=== PATIENT | female | born 1950 | race Caucasian/White ===

== ENCOUNTER 2018-06-23 10:36 | Outpatient (CLI) | payer MEDICARE, BC ==
--- NOTE | 2018-06-23 12:28 | BD ---
BONE DENSITOMETRY USING DEXA: Date: 06/23/18 HISTORY: Postmenopausal screening for osteoporosis. FINDINGS: Lumbar Spine: BMD (g/cm2) L1 0.774 T-Score: -2.0 Z-Score: -0.4 L2 0.835 T-Score: -1.8 Z-Score: 0.0 L3 0.866 T-Score: -2.0 Z-Score: -0.1 L4 0.918 T-Score: -1.3 Z-Score: 0.6 L1-L4 0.849 T-Score: -1.8 Z-Score: 0.0 Femoral Neck: 0.569 T-Score: -2.5 Z-Score: -1.0 Total Femur: 0.796 T-Score: -1.2 Z-Score: 0.1 IMPRESSION: Osteoporosis. POS: [facility]
== END 2018-06-23 10:37 | disposition home or self-care (01) ==
LOC: BICMAMMO 10:36
PROVIDERS: ATTEND Obstetrics & Gynecology
DX: Z12.31 Encounter for screening mammogram for malignant neoplasm of breast (principal); Z13.820 Encounter for screening for osteoporosis; M81.0 Age-related osteoporosis without current pathological fracture; R92.1 Mammographic calcification found on diagnostic imaging of breast
CPT/HCPCS: 77063; 77067; 77080

== ENCOUNTER 2019-06-17 09:06 | Emergency (ER) | payer MEDICARE ==
--- NOTE | 2019-06-17 10:23 | RAD ---
2 views right forearm: 06/17/2019 COMPARISON: None HISTORY: Dog bite to the right arm FINDINGS: No fracture or dislocation. On the frontal examination there is subtle subcutaneous gas pro jecting between the distal right radius and ulna consistent with penetrating trauma. No acute osseous abnormality. IMPRESSION: Subtle soft tissue subcutaneous gas distally.
== END 2019-06-17 10:35 | disposition home or self-care (01) ==
LOC: ERS 09:06
DX: S51.831A Puncture wound without foreign body of right forearm, initial encounter (principal); W54.0XXA Bitten by dog, initial encounter
CPT/HCPCS: 12001

== ENCOUNTER 2019-07-04 08:23 | Day surgery (SDC) | payer MEDICARE ==
[2019-07-03 08:58] VITALS: BMI 20.5
[~2019-07-04 08:23] MED LIST: Activase 2 MG VIAL CATH SCH; EPINEPHrine 0.3 MG in Ophthalmic Irrigation Solution 500 ML IRR SCH
[2019-07-04] MEDS ORDERED: Lidocaine 1% PF 5 ML VIAL ONE ×2 (10:34)
[2019-07-04] MEDS ORDERED: Bupivacaine PF 0.75% SDV 10 ML ONE (10:34)
[2019-07-04] MEDS ORDERED: Lidocaine 4% PF 5 ML AMP ONE (10:34)
[2019-07-04] MEDS ORDERED: Triamcinolone 40 MG/ML VIAL ONE (10:34)
[2019-07-04] MEDS ORDERED: PROPOFOL 200 MG/20 ML VIAL ONE (10:34)
[2019-07-04] MEDS ORDERED: CEFAZOLIN 1 GM VIAL ONE (10:34)
[2019-07-04] MEDS ORDERED: Phenylephrine 2.5% Ophth Soln 5 ML BOT ONE (11:30)
[2019-07-04] MEDS ORDERED: Cyclopentolate 1% Opth Drop 2 ML BOT ONE (11:30)
[2019-07-04] MEDS ORDERED: PROPOFOL 20 ML ONE (14:06)
[2019-07-04] MEDS ORDERED: Lidocaine 2% PF 5 ML VIAL ONE (14:06)
[2019-07-04] MEDS ORDERED: Midazolam HCl 2 mg/2 ml Vial ONE (14:35)
--- NOTE | 2019-07-04 15:36 | OP ---
DATE OF PROCEDURE: 07/04/2019 PRINCIPAL PREOPERATIVE DIAGNOSIS: Submacular hemorrhage, right eye. POSTOPERATIVE DIAGNOSIS: Submacular hemorrhage, right eye. NAME OF PROCEDURES PERFORMED: 1. 25-gauge pars plana vitrectomy, right eye. 2. Subretinal tissue plasminogen activator injection, right eye. 3. 15% SF6 fill, right eye. ESTIMATED BLOOD LOSS: None. SPECIMENS REMOVED: None. COMPLICATIONS: None. ANESTHESIA: MAC with retrobulbar block. SUMMARY OF OPERATION: The patient was identified in the preoperative holding area, where the correct eye being the right eye was marked for surgery. The patient was taken to the operating room, where MAC anesthesia was induced. A retrobulbar block was administered to the right eye. The block consisted of 1:1 ratio of 4% lidocaine and 0.75% Marcaine. Total of 5 mL was administered. The right eye was then prepped and draped in the usual sterile ophthalmic fashion for surgery. A wire-clip lid speculum was placed. A standard 25-gauge pars plana vitrectomy platform was fashioned with trocars placed approximately 4 mm from the limbus. The infusion was noted to be within the vitreous cavity prior to being turned on to an infusion pressure of 30 mmHg. The light pipe and microvitrector were introduced in the eye under visualization of the BIOM viewing system. A careful core vitrectomy was performed followed by injection of Kenalog. A gentle posterior vitreous detachment was created followed by completion of peripheral shave vitrectomy. Using the 41-gauge subretinal needle, tissue plasminogen activator was injected into the subretinal space in the area of submacular hemorrhage. This allowed for significant area of retinal detachment in a controlled fashion within the area of submacular hemorrhage. Of note, the submacular hemorrhage encompassed the entire macula including supratemporally beyond the supratemporal arcade vessels. A small amount of subretinal sterile air was injected following the injection of subretinal tPA. An air-fluid exchange was performed followed by an air-gas exchange with 15% SF6. The cannulas were sequentially removed and all sclerotomies were noted to be gas tight. The subconjunctival Ancef and Kenalog were injected. The wire-clip lid speculum was removed followed by application of Tobradex ophthalmic ointment and a light patch and shield. The patient tolerated the procedure well and was taken to outpatient recovery area in good condition. The patient was instructed to lie on her back for 1 hour in the recovery room followed by being upright for at least 1 hour. Additional restrictions included not lying on her back beyond the initial 1 hour going forward. Job ID: [id number]
== END 2019-07-04 16:45 | disposition home or self-care (01) ==
LOC: SDC 08:23
PROVIDERS: ATTEND Ophthalmology Retina Specialist
PROC: 08T43ZZ Resection of Right Vitreous, Percutaneous Approach (ICD-10-PCS; principal; 2019-07-04)
PROC: 08NE3ZZ Release Right Retina, Percutaneous Approach (ICD-10-PCS; 2019-07-04)
DX: H35.61 Retinal hemorrhage, right eye (principal); Z79.810 Long term (current) use of selective estrogen receptor modulators (SERMs); Z79.899 Other long term (current) drug therapy; Z88.5 Allergy status to narcotic agent; Z88.8 Allergy status to other drugs, medicaments and biological substances
CPT/HCPCS: 67043; J2997; J0171; J2001; J2250; J2704

== ENCOUNTER 2019-07-13 09:44 | Outpatient (CLI) | payer MEDICARE ==
--- NOTE | 2019-07-13 10:54 | MMO ---
Bilateral MAMMO Bilat Screen [facility]. CLINICAL HISTORY: Patient is 68 years old and is seen for screening. The patient has no family history of breast cancer. The patient has no personal history of cancer. VIEWS: The views performed were: bilateral craniocaudal with tomosynthesis; bilateral mediolateral oblique with tomosynthesis; and right exaggerated craniocaudal with tomosynthesis. FILMS COMPARED: The present examination has been compared to prior imaging studies performed at [facility] on 11/18/2012, 01/14/2015, 12/11/2016 and 06/23/2018. This study has been interpreted with the assistance of computer-aided detection. MAMMOGRAM FINDINGS: There are scattered fibroglandular densities. There are benign appearing calcifications seen in both breasts. There are no suspicious masses, suspicious calcifications, or new areas of architectural distortion. IMPRESSION: THERE IS NO MAMMOGRAPHIC EVIDENCE OF MALIGNANCY. A ROUTINE FOLLOW-UP MAMMOGRAM IN 1 YEAR IS RECOMMENDED. THE RESULTS OF THIS EXAM WERE SENT TO THE PATIENT. ACR BI-RADS Category 2 - Benign finding MAMMOGRAPHY NOTE: 1. A negative mammogram report should not delay a biopsy if a dominant of clinically suspicious mass is present. 2. Approximately 10% to 15% of breast cancers are not detected by mammography. 3. Adenosis and dense breasts may obscure an underlying neoplasm. Reported by: MAUREEN CASTILLO MD Electonically Signed: [id number]
== END 2019-07-13 09:45 | disposition home or self-care (01) ==
LOC: BICMAMMO 09:44
PROVIDERS: ATTEND Family Medicine
DX: Z12.31 Encounter for screening mammogram for malignant neoplasm of breast (principal)
CPT/HCPCS: 77063; 77067

== ENCOUNTER 2019-09-05 10:56 | Day surgery (SDC) | payer MEDICARE ==
[2019-09-04 11:02] VITALS: BMI 20.5
[2019-09-05] MEDS ORDERED: Bupivacaine PF 0.75% SDV 10 ML ONE (11:05)
[2019-09-05] MEDS ORDERED: CEFAZOLIN 1 GM VIAL ONE (11:05)
[2019-09-05] MEDS ORDERED: Triamcinolone 40 MG/ML VIAL ONE (11:05)
[2019-09-05] MEDS ORDERED: Maxitrol 0.1% Opth Oint 3.5 GM TUBE ONE (11:05)
[2019-09-05] MEDS ORDERED: PROPOFOL 200 MG/20 ML VIAL ONE (11:05)
[2019-09-05] MEDS ORDERED: Lidocaine 4% PF 5 ML AMP ONE (11:05)
[2019-09-05] MEDS ORDERED: Lidocaine 1% PF 5 ML VIAL ONE (11:05)
[2019-09-05] MEDS ORDERED: Cyclopentolate 1% Opth Drop 2 ML BOT ONE (11:13)
[2019-09-05] MEDS ORDERED: Phenylephrine 2.5% Ophth Soln 5 ML BOT ONE (11:13)
[2019-09-05] MEDS ORDERED: PROPOFOL 20 ML ONE (11:51)
[2019-09-05] MEDS ORDERED: Midazolam HCl 2 mg/2 ml Vial ONE (11:51)
[2019-09-05] MEDS ORDERED: Fentanyl 100 MCG/2 ML VIAL ONE (11:51)
[2019-09-05] MEDS ORDERED: Activase 2 MG VIAL CATH SCH (12:00)
--- NOTE | 2019-09-05 13:52 | OP ---
DATE OF PROCEDURE: 09/05/2019 PRINCIPAL PREOPERATIVE DIAGNOSIS: Submacular hemorrhage, right eye. POSTOPERATIVE DIAGNOSIS: Submacular hemorrhage, right eye. NAME OF PROCEDURES PERFORMED: 1. 25-gauge pars plana vitrectomy, right eye. 2. Subretinal tissue plasminogen activator injection, right eye. 3. 15% SF6 fill right eye. ESTIMATED BLOOD LOSS: None. SPECIMENS REMOVED: None. COMPLICATIONS: None. ANESTHESIA: MAC with subtenon's block. SUMMARY OF OPERATION: The patient was identified in the preoperative holding area where the correct eye being the right eye was marked for surgery. The patient was taken to the operating room where MAC anesthesia was induced. The right eye was prepped and draped in the usual sterile ophthalmic fashion for surgery. A wire-clip lid speculum was placed. A conjunctival peritomy was fashioned inferonasally with Rachael scissors for administration of subtenon's block. The block consisted of 1:1 ratio of 4% lidocaine and 0.75% Marcaine. Total of 6 mL was administered. A standard 25-gauge pars plana vitrectomy platform was fashioned with trocars placed approximately 4 mm from the limbus. The infusion was noted to be within the vitreous cavity prior to being turned on to an infusion pressure of 30 mmHg. The light pipe and microvitrector introduced in the eye under visualization of the BIOM viewing system. A diffuse subretinal hemorrhage was noted, encompassing the entire macula as well as into the nasal and temporal peripheries. A peripheral shave vitrectomy was performed in this previously vitrectomized eye. Using a 38-gauge subretinal cannula, tissue plasminogen activator was injected into the subretinal space. Following satisfactory injection of the subretinal tissue plasminogen activator, an air-fluid exchange was performed with subsequent air-gas exchange with 15% SF6. The cannulas were sequentially removed. All sclerotomies were noted to be gas tight. Subconjunctival Ancef and Kenalog were injected. The wire-clip lid speculum was removed followed by application of TobraDex ophthalmic ointment and a light patch and shield. The patient tolerated the procedure well and was taken to the outpatient recovery area in good condition. Job ID: [id number]
== END 2019-09-05 14:40 | disposition home or self-care (01) ==
LOC: SDC 10:56
PROVIDERS: ATTEND Ophthalmology Retina Specialist
PROC: 3E0C3GC Introduction of Other Therapeutic Substance into Eye, Percutaneous Approach (ICD-10-PCS; principal; 2019-09-05)
PROC: 08T43ZZ Resection of Right Vitreous, Percutaneous Approach (ICD-10-PCS; 2019-09-05)
DX: H35.61 Retinal hemorrhage, right eye (principal); Z79.810 Long term (current) use of selective estrogen receptor modulators (SERMs); Z88.5 Allergy status to narcotic agent
CPT/HCPCS: 67025; 67028; 67036; J2997; J0171; J0690; J2001; J2250; J2704; J3010; J3301; J3490

== ENCOUNTER 2020-09-19 09:25 | Outpatient (CLI) | payer MEDICARE | END 2020-09-19 09:26 | disposition home or self-care (01) | LOC: BICMAMMO 09:25 | PROVIDERS: ATTEND Family Medicine | DX: Z13.820 Encounter for screening for osteoporosis (principal); Z78.0 Asymptomatic menopausal state; M85.89 Other specified disorders of bone density and structure, multiple sites | CPT/HCPCS: 77080 ==

== ENCOUNTER 2023-02-23 09:27 | Outpatient (CLI) | payer MEDICARE | END 2023-02-23 09:28 | disposition home or self-care (01) | LOC: BICMAMMO 09:27 | PROVIDERS: ATTEND Family Medicine | DX: Z12.31 Encounter for screening mammogram for malignant neoplasm of breast (principal); M81.0 Age-related osteoporosis without current pathological fracture | CPT/HCPCS: 77063; 77067; 77080 ==

== ENCOUNTER 2023-04-30 13:21 | Outpatient (CLI) | payer MEDICARE | END 2023-04-30 13:22 | disposition home or self-care (01) | LOC: BICRAD 13:21 | PROVIDERS: ATTEND Student in an Organized Health Care Education/Training Program | DX: Z01.89 Encounter for other specified special examinations (principal); Z71.85 Encounter for immunization safety counseling; R53.83 Other fatigue; R73.09 Other abnormal glucose; R79.89 Other specified abnormal findings of blood chemistry; R79.9 Abnormal finding of blood chemistry, unspecified; E55.9 Vitamin D deficiency, unspecified; M25.50 Pain in unspecified joint | CPT/HCPCS: 71046 ==

== ENCOUNTER 2024-05-12 09:54 | Outpatient (CLI) | payer MEDICARE | END 2024-05-12 09:55 | disposition home or self-care (01) | LOC: DTY/OP 09:54 | PROVIDERS: ATTEND Family Medicine | DX: E78.5 Hyperlipidemia, unspecified (principal) | CPT/HCPCS: 97802 ==

== ENCOUNTER 2024-06-21 09:17 | Outpatient (CLI) | payer MEDICARE | END 2024-06-21 09:18 | disposition home or self-care (01) | LOC: BICULT 09:17 | PROVIDERS: ATTEND Internal Medicine Nephrology | DX: N18.30 Chronic kidney disease, stage 3 unspecified (principal) | CPT/HCPCS: 76770; 93975 ==

== ENCOUNTER 2024-06-29 13:53 | Outpatient (CLI) | payer MEDICARE | END 2024-06-29 13:54 | disposition home or self-care (01) | LOC: BICMAMMO 13:53 | PROVIDERS: ATTEND Student in an Organized Health Care Education/Training Program | DX: M81.0 Age-related osteoporosis without current pathological fracture (principal); M85.89 Other specified disorders of bone density and structure, multiple sites | CPT/HCPCS: 77080 ==

== ENCOUNTER 2025-02-14 10:57 | Outpatient (CLI) | payer MEDICARE | END 2025-02-14 10:58 | disposition home or self-care (01) | LOC: BICRAD 10:57 | PROVIDERS: ATTEND Family Medicine | DX: M25.552 Pain in left hip (principal) ==